=== PATIENT | male | born 1965 | race Caucasian/White ===

== ENCOUNTER → 2020-04-24 | Outpatient (CLI) | payer MEDICARE ==
[~2020-04-24] MED LIST: FAMOTIDINE20 M1 PO; IMBRUVICA420 MG PO; METRONIDAZOLE250 M1 PO; ONDANSETRON ODT8 MG PO; OXYCODONE HYDRO30 MG PO; PANTOPRAZOLE SO40 MG PO; PERCOCET 10-321 EACH PO; PREDNISONE10 MG PO; PROMETHEGAN12.5 MG R; SEPTDS PO
== END | disposition home or self-care (01) ==
LOC: COVID19 05:13
DX: Z01.818 Encounter for other preprocedural examination (principal); Z11.59 Encounter for screening for other viral diseases

== ENCOUNTER → 2020-04-30 | Day surgery (SDC) | payer MEDICARE, MEDICAID ==
[~2020-04-30] VITALS: Ht 187.9 cm; Wt 88.5 kg
[2020-04-30 07:30] VITALS: BP 154/83
[2020-04-30 09:06] VITALS: BP 99/56
[2020-04-30 09:20] VITALS: BP 102/57
[2020-04-30 09:36] VITALS: BP 104/63
== END | disposition home or self-care (01) ==
LOC: SDC 04-25 08:00
DX: D17.1 Benign lipomatous neoplasm of skin and subcutaneous tissue of trunk (principal); K21.9 Gastro-esophageal reflux disease without esophagitis; F17.210 Nicotine dependence, cigarettes, uncomplicated; Z88.1 Allergy status to other antibiotic agents; Z91.048 Other nonmedicinal substance allergy status; Z85.6 Personal history of leukemia; Z90.49 Acquired absence of other specified parts of digestive tract; Z85.72 Personal history of non-Hodgkin lymphomas; Z79.899 Other long term (current) drug therapy; Z98.890 Other specified postprocedural states; Z87.01 Personal history of pneumonia (recurrent)